=== PATIENT | male | born 1975 | race Caucasian/White ===

== ENCOUNTER 2016-10-30 15:26 | Inpatient (IN) | payer OTHER ==
[~2016-10-30] VITALS: Ht 180.3 cm; Wt 69.9 kg
[2016-10-30 15:47] LABS: GLUCOSE COMMENT 1 Doctor Notified; GLUCOSE,POINT OF CARE > 600 MG/DL (70-110)
[2016-10-30 16:29] LABS: BASOPHILS % (AUTO) 0.3 % (0.0-2.0); HEMATOCRIT 48.5 % (41-53); HEMOGLOBIN 16.1 g/dL (13.5-17.5); LYMPHOCYTES # (AUTO) 1.8 K/uL (1.0-4.8); LYMPHOCYTES % (AUTO) 20.6 % (22.0-44.0); MEAN CORPUSCULAR HEMOGLOBIN 28.9 pg (26.0-34.0); MEAN CORPUSCULAR HGB CONC 33.3 G/dL (31.0-37.0); MEAN CORPUSCULAR VOLUME 87 fL (80-100); MONOCYTES # (AUTO) 0.7 K/uL (0.1-1.0); MONOCYTES % (AUTO) 8.1 % (2.0-9.0); PLATELET COUNT (AUTO) 343 K/uL (150-450); RED BLOOD CELL COUNT(AUTO) 5.58 MIL/uL (4.50-5.90); RED CELL DISTRIBUTION WIDTH 12.5 % (11.5-14.5); WHITE BLOOD COUNT (AUTO) 8.6 K/uL (4.5-11.0)
[2016-10-30] MEDS ORDERED: INSULIN REGULAR, HUMAN 100 UNITS/ML IVP ONE (16:45)
[2016-10-30] MEDS ORDERED: SODIUM CHLORIDE 0.9% 1,000 ML IV ONE (16:45)
[2016-10-30 16:46] LABS: APPEARANCE,URINE CLEAR (CLEAR); GLUCOSE, URINE (UA) >=1000 mg/dL (NEGATIVE); KETONES,URINE TRACE mg/dL (NEGATIVE); LEUKOCYTE ESTERASE ,URINE NEGATIVE (NEGATIVE); OCCULT BLOOD,URINE NEGATIVE (NEGATIVE); PROTEIN,URINE NEGATIVE (NEGATIVE)
[2016-10-30 16:46] LABS: ALANINE AMINOTRANSFERASE 38 U/L (12-78); ANION GAP 11 mmol/L (8-16); ASPARTATE AMINOTRANSFERASE 15 U/L (15-37); BILIRUBIN,TOTAL 0.6 mg/dL (0.1-1.0); CALCIUM, TOTAL 9.3 mg/dL (8.8-10.5); CARBON DIOXIDE 27 mmol/L (22-29); CHLORIDE 92 mmol/L (98-107); CREATINE KINASE, TOTAL 45 U/L (39-308); GLOMERULAR FILTR. RATE CALC > 60 mL/min (>60); SODIUM SERUM 130 mmol/L (136-145); TOTAL PROTEIN, SERUM 8.1 g/dL (6.4-8.2); UREA NITROGEN, BLOOD 13 mg/dL (7-18)
[2016-10-30 16:53] LABS: B-TYPE NATRIURETIC PEPTIDE < 5 pg/mL (0-100)
[2016-10-30 17:02] LABS: ADD UA MICROSCOPIC YES
[2016-10-30 17:08] LABS: RBC,URINE None Seen /HPF (0-2); WBC,URINE 0-2 /HPF (0-5)
[2016-10-30 17:46] LABS: GLUCOSE,POINT OF CARE 376 MG/DL (70-110)
[2016-10-30] MEDS ORDERED: BISACODYL 10 MG RECTAL RECTAL SUPPOSITORY PR PRN (19:00)
[2016-10-30] MEDS ORDERED: MAGNESIUM HYDROXIDE SUSPENSION 30 ML UDCUP PO PRN (19:00)
[2016-10-30] MEDS ORDERED: ZOLPIDEM TARTRATE 5 MG TABLET PO PRN (19:00)
[2016-10-30] MEDS ORDERED: ONDANSETRON HCL 4 MG/2 ML VIAL IVP PRN (19:00)
[2016-10-30] MEDS ORDERED: DEXTROSE 50%-WATER 25 GM/50 ML SYRINGE IVP PRN (19:00)
[2016-10-30 19:12] LABS: GLUCOSE,POINT OF CARE 335 MG/DL (70-110)
[2016-10-30 20:07] LABS: GLUCOSE,POINT OF CARE 289 MG/DL (70-110)
[2016-10-30] MEDS: INSULIN ASPART 100 UNITS/ML SQ PRN (20:10)
[2016-10-30 20:45] VITALS: BP 121/77
[2016-10-30] MEDS: INSULIN DETEMIR 100 UNITS/ML SQ SCH (20:50)
[2016-10-30] MEDS ORDERED: PNEUMOCOCCAL VACCINE POLYVALENT 0.5 ML VIAL [PPSV23] IM ONE (21:00)
[2016-10-30 23:43] VITALS: BP 116/77
[2016-10-31 04:53] VITALS: BP 127/87
[2016-10-31] MEDS: INSULIN ASPART 100 UNITS/ML SQ PRN ×4 (05:54→21:04)
[2016-10-31 06:21] LABS: BASOPHILS % (AUTO) 0.2 % (0.0-2.0); HEMATOCRIT 45.9 % (41-53); HEMOGLOBIN 15.1 g/dL (13.5-17.5); LYMPHOCYTES # (AUTO) 2.3 K/uL (1.0-4.8); LYMPHOCYTES % (AUTO) 25.3 % (22.0-44.0); MEAN CORPUSCULAR HEMOGLOBIN 28.7 pg (26.0-34.0); MEAN CORPUSCULAR HGB CONC 32.9 G/dL (31.0-37.0); MEAN CORPUSCULAR VOLUME 87 fL (80-100); MONOCYTES # (AUTO) 0.8 K/uL (0.1-1.0); MONOCYTES % (AUTO) 8.7 % (2.0-9.0); NEUTROPHILS # (AUTO) 5.7 K/uL (1.8-7.7); NEUTROPHILS % (AUTO) 63.8 % (40.0-70.0); PLATELET COUNT (AUTO) 326 K/uL (150-450); RED BLOOD CELL COUNT(AUTO) 5.26 MIL/uL (4.50-5.90); RED CELL DISTRIBUTION WIDTH 12.4 % (11.5-14.5); WHITE BLOOD COUNT (AUTO) 8.9 K/uL (4.5-11.0)
[2016-10-31 06:41] LABS: GLUCOSE COMMENT 1 Received Meds; GLUCOSE,POINT OF CARE 248 MG/DL (70-110)
[2016-10-31 07:46] LABS: HEMOGLOBIN A1C 11.3 % (4.5-6.2)
[2016-10-31 08:00] LABS: ANION GAP 9 mmol/L (8-16); CALCIUM, TOTAL 8.3 mg/dL (8.8-10.5); CARBON DIOXIDE 28 mmol/L (22-29); CHLORIDE 103 mmol/L (98-107); CHOL/HDL RATIO 5.5 (4.2-7.3); CREATININE 0.77 mg/dL (0.60-1.30); GLOMERULAR FILTR. RATE CALC > 60 mL/min (>60); POTASSIUM 3.6 mmol/L (3.5-5.1); SODIUM SERUM 140 mmol/L (136-145); THYROID STIMULATING HORMONE 6.89 uIU/mL (0.36-3.74); UREA NITROGEN, BLOOD 12 mg/dL (7-18)
[2016-10-31] MEDS: ENOXAPARIN SODIUM 40 MG/0.4 ML PF SYRINGE SQ SCH (08:14)
[2016-10-31] MEDS: PANTOPRAZOLE SODIUM 40 MG DR TABLET PO SCH (08:14)
[2016-10-31 08:21] VITALS: BP 128/75
[2016-10-31] MEDS: ACETAMINOPHEN 325 MG TABLET PO PRN ×2 (11:16→21:00)
[2016-10-31 11:19] VITALS: BP 119/83
[2016-10-31 14:32] LABS: GLUCOSE COMMENT 1 Received Meds; GLUCOSE,POINT OF CARE 270 MG/DL (70-110)
[2016-10-31 15:39] VITALS: BP 125/86
[2016-10-31 17:38] LABS: GLUCOSE COMMENT 1 Received Meds; GLUCOSE,POINT OF CARE 219 MG/DL (70-110)
[2016-10-31] MEDS ORDERED: BENZOCAINE/MENTHOL LOZENGE [8 LOZENGES/PACKET] PO PRN (18:00)
[2016-10-31 20:35] VITALS: BP 116/79
[2016-10-31] MEDS: INSULIN DETEMIR 100 UNITS/ML SQ SCH (21:04)
[2016-10-31 23:46] VITALS: BP 112/76
[2016-11-01 03:52] LABS: GLUCOSE COMMENT 1 Received Meds; GLUCOSE,POINT OF CARE 210 MG/DL (70-110)
[2016-11-01 04:29] VITALS: BP 117/67
[2016-11-01 06:42] LABS: ANION GAP 12 mmol/L (8-16); BASOPHILS % (AUTO) 0.3 % (0.0-2.0); CALCIUM, TOTAL 8.5 mg/dL (8.8-10.5); CARBON DIOXIDE 25 mmol/L (22-29); CHLORIDE 103 mmol/L (98-107); CREATININE 0.71 mg/dL (0.60-1.30); EOSINOPHILS % (AUTO) 2.2 % (1.0-6.0); GLOMERULAR FILTR. RATE CALC > 60 mL/min (>60); HEMATOCRIT 45.7 % (41-53); HEMOGLOBIN 15.1 g/dL (13.5-17.5); LYMPHOCYTES # (AUTO) 1.8 K/uL (1.0-4.8); LYMPHOCYTES % (AUTO) 23.9 % (22.0-44.0); MEAN CORPUSCULAR VOLUME 88 fL (80-100); MONOCYTES # (AUTO) 0.7 K/uL (0.1-1.0); MONOCYTES % (AUTO) 8.7 % (2.0-9.0); NEUTROPHILS % (AUTO) 64.9 % (40.0-70.0); PLATELET COUNT (AUTO) 303 K/uL (150-450); POTASSIUM 3.7 mmol/L (3.5-5.1); RED BLOOD CELL COUNT(AUTO) 5.19 MIL/uL (4.50-5.90); RED CELL DISTRIBUTION WIDTH 12.8 % (11.5-14.5); SODIUM SERUM 140 mmol/L (136-145); UREA NITROGEN, BLOOD 10 mg/dL (7-18); WHITE BLOOD COUNT (AUTO) 7.7 K/uL (4.5-11.0)
[2016-11-01 06:42] LABS: GLUCOSE COMMENT 1 Received Meds; GLUCOSE,POINT OF CARE 222 MG/DL (70-110)
[2016-11-01] MEDS: PANTOPRAZOLE SODIUM 40 MG DR TABLET PO SCH (07:52)
[2016-11-01] MEDS: ENOXAPARIN SODIUM 40 MG/0.4 ML PF SYRINGE SQ SCH (07:53)
[2016-11-01] MEDS: INSULIN ASPART 100 UNITS/ML SQ PRN ×4 (08:03→21:21)
[2016-11-01 08:05] VITALS: BP 112/71
[2016-11-01 08:07] LABS: GLUCOSE COMMENT 1 Received Meds; GLUCOSE,POINT OF CARE 226 MG/DL (70-110)
[2016-11-01 11:54] VITALS: BP 118/80
[2016-11-01 12:27] LABS: GLUCOSE,POINT OF CARE 177 MG/DL (70-110)
[2016-11-01 16:15] VITALS: BP 112/67
[2016-11-01 19:40] VITALS: BP 106/73
[2016-11-01 20:42] LABS: GLUCOSE,POINT OF CARE 188 MG/DL (70-110)
[2016-11-01] MEDS: INSULIN DETEMIR 100 UNITS/ML SQ SCH (21:25)
[2016-11-01 22:56] LABS: GLUCOSE COMMENT 1 Received Meds; GLUCOSE,POINT OF CARE 318 MG/DL (70-110)
[2016-11-01 23:37] VITALS: BP 110/69
[2016-11-02 04:31] VITALS: BP 107/72
[2016-11-02 06:55] LABS: BASOPHILS % (AUTO) 0.5 % (0.0-2.0); HEMATOCRIT 45.6 % (41-53); HEMOGLOBIN 15.1 g/dL (13.5-17.5); LYMPHOCYTES # (AUTO) 2.5 K/uL (1.0-4.8); LYMPHOCYTES % (AUTO) 36.1 % (22.0-44.0); MEAN CORPUSCULAR HGB CONC 33.2 G/dL (31.0-37.0); MEAN CORPUSCULAR VOLUME 87 fL (80-100); MONOCYTES # (AUTO) 0.6 K/uL (0.1-1.0); NEUTROPHILS # (AUTO) 3.7 K/uL (1.8-7.7); NEUTROPHILS % (AUTO) 53.4 % (40.0-70.0); PLATELET COUNT (AUTO) 301 K/uL (150-450); RED BLOOD CELL COUNT(AUTO) 5.21 MIL/uL (4.50-5.90); RED CELL DISTRIBUTION WIDTH 12.8 % (11.5-14.5)
[2016-11-02 07:39] LABS: ANION GAP 10 mmol/L (8-16); CALCIUM, TOTAL 8.4 mg/dL (8.8-10.5); CARBON DIOXIDE 28 mmol/L (22-29); CHLORIDE 103 mmol/L (98-107); CREATININE 0.72 mg/dL (0.60-1.30); GLOMERULAR FILTR. RATE CALC > 60 mL/min (>60); POTASSIUM 3.4 mmol/L (3.5-5.1); SODIUM SERUM 141 mmol/L (136-145); UREA NITROGEN, BLOOD 12 mg/dL (7-18)
[2016-11-02 07:53] VITALS: BP 113/76
[2016-11-02 08:07] LABS: GLUCOSE,POINT OF CARE 205 MG/DL (70-110)
[2016-11-02] MEDS: ENOXAPARIN SODIUM 40 MG/0.4 ML PF SYRINGE SQ SCH (08:23)
[2016-11-02] MEDS: PANTOPRAZOLE SODIUM 40 MG DR TABLET PO SCH (08:23)
[2016-11-02] MEDS: INSULIN ASPART 100 UNITS/ML SQ PRN ×3 (08:29→17:33)
[2016-11-02] MEDS ORDERED: POTASSIUM CHLORIDE 20 MEQ ER TABLET PO ONE (09:00)
[2016-11-02] MEDS ORDERED: INSNOV SQ (10:56)
[2016-11-02] MEDS ORDERED: INSU100V12 SQ (10:57)
[2016-11-02 11:22] LABS: GLUCOSE,POINT OF CARE 233 MG/DL (70-110)
[2016-11-02 12:20] VITALS: BP 128/78
[2016-11-02 17:56] LABS: GLUCOSE COMMENT 1 Received Meds; GLUCOSE,POINT OF CARE 251 MG/DL (70-110)
== END 2016-11-02 17:42 | disposition home or self-care (01) | DRG 420 ==
LOC: EMS 15:34 → 6N 19:50
PROVIDERS: ADMIT Internal Medicine Geriatric Medicine; ATTEND Internal Medicine Geriatric Medicine
PROC: 3E0234Z Introduction of Serum, Toxoid and Vaccine into Muscle, Percutaneous Approach (ICD-10-PCS; principal; 2016-10-31)
DX: E10.65 Type 1 diabetes mellitus with hyperglycemia (principal); E87.1 Hypo-osmolality and hyponatremia; E87.6 Hypokalemia; R63.1 Polydipsia; R63.2 Polyphagia; R35.8 Other polyuria; Z79.899 Other long term (current) drug therapy; Z23 Encounter for immunization
CPT/HCPCS: 82306; 82607; 82746; 82962; 83036; 83735; 84439; 84443; 90471; 93005; 96361; 96374; 99285; J1650; J1815; J2405; J7030

== ENCOUNTER 2017-09-11 08:20 | Emergency (ER) | payer OTHER ==
[~2017-09-11] VITALS: Ht 177.8 cm; Wt 86.4 kg
[~2017-09-11 08:20] MED LIST: INSNOV SQ; INSU100V12 SQ
[2017-09-11] MEDS ORDERED: CYCLOBENZAPRINE HCL 10 MG TABLET PO ONE (09:15)
[2017-09-11] MEDS ORDERED: LIDOCAINE HCL 5% TRANSDERMAL PATCH TD ONE (09:15)
[2017-09-11 10:10] VITALS: BP 126/71
== END 2017-09-11 10:28 | disposition home or self-care (01) ==
LOC: EMS 08:22
DX: M54.5 Low back pain (principal); E11.9 Type 2 diabetes mellitus without complications; G89.29 Other chronic pain
CPT/HCPCS: 82962; 99283